=== PATIENT | female | born 1925 | race Caucasian/White ===

== ENCOUNTER 2016-08-17 04:06 | Emergency (ER) | payer MEDICARE ==
[~2016-08-17] VITALS: Ht 157.5 cm; Wt 86.4 kg
[~2016-08-17 04:06] MED LIST: ALBUTEROL0.83 MG/ML IH; ALMACONE 360 M360 ML; AMARYL 2MG T2 MG/TAB PO; CATAPRES 0.1MG0.1 MG PO; CATAPRES0.2 MG PO; CLARITIN 1010 MG/TAB PO; CLEOCIN HCL300 MG PO; COMPAZINE 110 MG/TAB PO; COREG12.5 MG PO; CORTIZONE-10 MAXIM11 TP; COZAAR 50MG50 MG/TAB PO; COZAAR100 MG PO; CYMBALTA 30MG30 MG PO; FERROUS SU325 MG/TAB PO; IMODIUM 2MG CAPS2 MG PO; LASIX 20MG TABL20 MG PO; LEVAQUIN 750MG750 M1 PO; LIDO2%GEL; LIDODERM PATCH TP; LORTAB 7.5/5001 TAB PO; LOTRISONE 0.05%1 CRE TOP; MELATONIN3 M1 PO; MILK OF MA400 MG/52; MIRALAX PA17 GM/Dose PO; MUCINEX 60600 MG/TA1 PO; NEURONTIN600 MG/TAB PO; NORCO 325 MG-101 TAB PO; NORVASC 10MG10 MG PO; NORVASC 5MG5 MG/TAB PO; OCUVITE1 TA1 PO; PAMELOR50 MG PO; PREDNISONE20 MG PO; PROMETHAZINE V473 M2 PO; PROZAC 20MG20 MG PO; STOOL SOFTENER100 M2 PO; TEGRETOL 1100 MG/TAB PO; TENORMIN 2525 MG/TAB PO; TRIXAICIN HP0.075% TP; Z BEC PO; ZOCOR 20MG20 MG PO; [UNRECOGNIZED DRUG - OTHER]; [UNRECOGNIZED DRUG - OTHER] PO; [UNRECOGNIZED DRUG - OTHER] PO; [UNRECOGNIZED DRUG - OTHER] TP
[2016-08-17 04:09] VITALS: TEMP 97.8
[2016-08-17 05:45] VITALS: BP 184/91; PULSE 72
[2016-08-17] MEDS ORDERED: SYSTANE 0.4%-0.1 SOL OP (06:09)
[2016-08-17] MEDS ORDERED: ALMACONE 360 M360 ML PO (06:10)
[2016-08-17] MEDS ORDERED: TYLENOL SU325 MG/SUP RC (06:11)
[2016-08-17] MEDS ORDERED: DULCOLAX S10 MG/SUPP RC (06:11)
[2016-08-17] MEDS ORDERED: TYLENOL 325MG325 MG PO (06:12)
[2016-08-17] MEDS ORDERED: DEBROX OT (06:20)
== END 2016-08-17 06:00 | disposition home or self-care (01) ==
LOC: COL.ER 04:06
DX: S61.411A Laceration without foreign body of right hand, initial encounter (principal); Z23 Encounter for immunization; W27.2XXA Contact with scissors, initial encounter; W01.118A Fall on same level from slipping, tripping and stumbling with subsequent striking against other sharp object, initial encounter; Y92.009 Unspecified place in unspecified non-institutional (private) residence as the place of occurrence of the external cause

== ENCOUNTER → 2017-04-08 | Outpatient (CLI) | payer MEDICARE ==
[~2017-04-08] MED LIST changes: +ALMACONE 360 M360 ML PO; +DEBROX OT; +DULCOLAX S10 MG/SUPP RC; +SYSTANE 0.4%-0.1 SOL OP; +TYLENOL 325MG325 MG PO; +TYLENOL SU325 MG/SUP RC
== END ==
LOC: WCC 13:19
DX: L89.891 Pressure ulcer of other site, stage 1 (principal); L89.892 Pressure ulcer of other site, stage 2
CPT/HCPCS: 13919; 17716; 17717; 27510; A6197; A6212; G0463

== ENCOUNTER 2017-05-28 09:04 | Inpatient (IN) | payer MEDICARE ==
[2017-05-28] VITALS (275 sets, daily range): BP systolic 117–153; BP diastolic 58–76; PULSE 84–89; TEMP 97–98.8; O2SAT 79–100
[~2017-05-28] VITALS: Ht 170.2 cm; Wt 84.1 kg
[2017-05-28] MEDS ORDERED: COLACE 100100 MG/CAP PO (09:34)
[2017-05-28] MEDS ORDERED: PROFE180 MG PO (09:37)
[2017-05-28 10:09] LABS: ARTERIAL BLD GAS TCO2 CT 29.2; ARTERIAL BLOOD GAS BASE EXCESS 1.1 (-2-2); ARTERIAL BLOOD GAS HCO3 27.6 meq/L (22-26); ARTERIAL BLOOD GAS PO2 69.4 mmHg (80-100); ARTERIAL BLOOD GAS pH 7.34 (7.35-7.45); OXYHEMOGLOBIN 91.2 %
[2017-05-28 10:10] LABS: ALLEN TEST YES; ALLENS TEST RESULT PASS; ATS? YES
[2017-05-28 10:11] LABS: MEAN CELL VOLUME 104 fl (80.0-100.0); MEAN CORPUSCULAR HGB CONC 32 g/dl (33.0-37.0); MEAN PLATELET VOLUME 11.1 fl (7.4-10.4); PLATELET COUNT 135 K/mm3 (130-400); RED BLOOD COUNT 2.87 M/mm3 (4.10-5.30)
[2017-05-28 10:13] LABS: HEMATOCRIT 29.8 % (37.0-47.0); HEMOGLOBIN 9.5 g/dl (12.5-16.0); MEAN CORPUSCULAR HEMOGLOBIN 33 pg (27.0-31.0); WHITE BLOOD COUNT 20.1 K/mm3 (4.8-10.8)
[2017-05-28 10:14] LABS: ADD PATHOLOGY DIFF REVIEW NO
[2017-05-28 10:25] LABS: ADJUSTED CALCIUM 8.9 mg/dL (8.4-10.2); ALBUMIN 3.5 gm/dL (3.5-5.0); BILIRUBIN,TOTAL 0.8 mg/dL (0.0-1.0); CALCIUM 8.5 mg/dL (8.4-10.2); CREATININE, serum 2.13 mg/dL (0.52-1.25); POTASSIUM 4.3 mmol/L (3.4-5.0); TOTAL PROTEIN 6.8 gm/dL (6.4-8.2)
[2017-05-28 10:28] LABS: COLLECTION METHOD CLEAN CATCH
[2017-05-28 10:43] LABS: BAND 43 % (0-10); LYMPHOCYTE 8 % (20.0-51.0); NEUTROPHILS 43 % (42.0-75.2); TOTAL CELLS COUNTED 100
[2017-05-28 10:47] LABS: MUCOUS Present /lpf; PH 5 (5-8); SQUAMOUS EPITHELIAL None Seen /hpf; URINE APPEARANCE Cloudy; URINE BACTERIA Many /hpf; URINE BILIRUBIN Negative (NEGATIVE); URINE BLOOD Negative (NEGATIVE); URINE COLOR Amber; URINE GLUCOSE Negative (NEGATIVE); URINE KETONE Negative (NEGATIVE); URINE LEUKOCYTE ESTERASE 2+ (NEGATIVE); URINE PROTEIN(semi-quant) 1+ (NEGATIVE); URINE RBC 0-2 /hpf; URINE UROBILINOGEN Negative (NEGATIVE)
[2017-05-28 10:52] LABS: PLATELET ESTIMATE NORMAL (NORMAL); TOXIC GRANULATION PRESENT
[2017-05-28] MEDS ORDERED: NORCO 325 MG-101 TAB PO (15:34)
[2017-05-28 19:06] LABS: ARTERIAL BLD GAS O2 SATURATION 92.5 % (92-100); ARTERIAL BLOOD GAS BASE EXCESS -0.9 (-2-2); ARTERIAL BLOOD GAS HCO3 25.5 meq/L (22-26); ARTERIAL BLOOD GAS pH 7.32 (7.35-7.45); OXYHEMOGLOBIN 91.9 %
[2017-05-28 19:07] LABS: ALLEN TEST NO; ATS? YES
[2017-05-28 21:04] LABS: ALLEN TEST YES; ALLENS TEST RESULT PASS; ARTERIAL BLD GAS TCO2 CT 28.5; ARTERIAL BLOOD GAS BASE EXCESS 0.3 (-2-2); ARTERIAL BLOOD GAS HCO3 26.9 meq/L (22-26); ARTERIAL BLOOD GAS PO2 94.5 mmHg (80-100); ARTERIAL BLOOD GAS pH 7.32 (7.35-7.45); ATS? YES; OXYHEMOGLOBIN 95.4 %
[2017-05-29] VITALS (753 sets, daily range): BP systolic 147–191; BP diastolic 75–95; PULSE 85–96; TEMP 97.4–98.5; O2SAT 72–100
[2017-05-29 04:40] LABS: ARTERIAL BLD GAS O2 SATURATION 95.7 % (92-100); ARTERIAL BLD GAS TCO2 CT 29.3; ARTERIAL BLOOD GAS BASE EXCESS -0.7 (-2-2); ARTERIAL BLOOD GAS HCO3 27.3 meq/L (22-26); ARTERIAL BLOOD GAS PO2 94.9 mmHg (80-100); ARTERIAL BLOOD GAS pH 7.25 (7.35-7.45); OXYHEMOGLOBIN 95.1 %
[2017-05-29 04:41] LABS: ALLEN TEST YES; ALLENS TEST RESULT PASS; ATS? YES
[2017-05-29 05:56] LABS: BASO % 0.1 % (0.0-2.0); GRAN # 13.4 (1.4-6.5); GRAN % 90.6 % (42.2-75.2); MEAN CELL VOLUME 105 fl (80.0-100.0); MEAN CORPUSCULAR HGB CONC 31 g/dl (33.0-37.0); MEAN PLATELET VOLUME 11.2 fl (7.4-10.4); MONO # 0.2 (0.1-0.6); MONO % 1.6 % (1.7-9.3); PLATELET COUNT 139 K/mm3 (130-400); WHITE BLOOD COUNT 14.8 K/mm3 (4.8-10.8)
[2017-05-29 05:59] LABS: HEMATOCRIT 30.3 % (37.0-47.0); HEMOGLOBIN 9.5 g/dl (12.5-16.0); MEAN CORPUSCULAR HEMOGLOBIN 33 pg (27.0-31.0)
[2017-05-29 06:07] LABS: ADJUSTED CALCIUM 9.4 mg/dL (8.4-10.2); ALBUMIN 3.3 gm/dL (3.5-5.0); BILIRUBIN,TOTAL 0.5 mg/dL (0.0-1.0); CALCIUM 8.8 mg/dL (8.4-10.2); CREATININE, serum 1.54 mg/dL (0.52-1.25); POTASSIUM 4.2 mmol/L (3.4-5.0); TOTAL PROTEIN 6.6 gm/dL (6.4-8.2)
[2017-05-29 07:06] LABS: ARTERIAL BLD GAS O2 SATURATION 96.9 % (92-100); ARTERIAL BLD GAS TCO2 CT 27.7; ARTERIAL BLOOD GAS BASE EXCESS -1.1 (-2-2); ARTERIAL BLOOD GAS PHT 7.29 C (7.35-7.45); ARTERIAL BLOOD GAS PO2 108.6 mmHg (80-100); ARTERIAL BLOOD GAS PO2T 108.6 (80-100); ARTERIAL BLOOD GAS pH 7.29 (7.35-7.45)
[2017-05-29 07:07] LABS: ATS? YES
[2017-05-30] VITALS (9 sets, daily range): BP systolic 155–189; BP diastolic 79–91; PULSE 84–105; TEMP 97.3–98.2
[2017-05-30 04:26] LABS: ARTERIAL BLD GAS TCO2 CT 26.1; ARTERIAL BLOOD GAS HCO3 24.7 meq/L (22-26); ARTERIAL BLOOD GAS PHT 7.35 C (7.35-7.45); ARTERIAL BLOOD GAS PO2 70.9 mmHg (80-100); ARTERIAL BLOOD GAS PO2T 70.9 (80-100); ARTERIAL BLOOD GAS pH 7.35 (7.35-7.45); OXYHEMOGLOBIN 92.4 %
[2017-05-30 04:27] LABS: ALLEN TEST YES; ALLENS TEST RESULT PASS; ATS? YES
[2017-05-30 06:49] LABS: BASO % 0.2 % (0.0-2.0); GRAN # 14.1 (1.4-6.5); GRAN % 84.9 % (42.2-75.2); LYMPH # 1.3 (1.2-3.4); LYMPH % 7.7 % (20.0-51.0); MEAN CELL VOLUME 101 fl (80.0-100.0); MEAN CORPUSCULAR HGB CONC 32 g/dl (33.0-37.0); MONO # 1.1 (0.1-0.6); MONO % 6.6 % (1.7-9.3); PLATELET COUNT 182 K/mm3 (130-400); RED BLOOD COUNT 3.33 M/mm3 (4.10-5.30); WHITE BLOOD COUNT 16.6 K/mm3 (4.8-10.8)
[2017-05-30 06:50] LABS: HEMATOCRIT 33.5 % (37.0-47.0); HEMOGLOBIN 10.8 g/dl (12.5-16.0); MEAN CORPUSCULAR HEMOGLOBIN 32 pg (27.0-31.0)
[2017-05-30 07:11] LABS: CALCIUM 9.3 mg/dL (8.4-10.2); CREATININE, serum 1.22 mg/dL (0.52-1.25); POTASSIUM 3.5 mmol/L (3.4-5.0)
[2017-05-31 00:32] VITALS: BP 169/74; PULSE 92; TEMP 97.4
[2017-05-31 05:48] VITALS: BP 187/91; PULSE 98; TEMP 98.5
[2017-05-31 06:40] LABS: BASO % 0.1 % (0.0-2.0); GRAN # 12.5 (1.4-6.5); GRAN % 81.8 % (42.2-75.2); LYMPH # 1.6 (1.2-3.4); LYMPH % 10.6 % (20.0-51.0); MEAN CELL VOLUME 101 fl (80.0-100.0); MEAN CORPUSCULAR HGB CONC 32 g/dl (33.0-37.0); MEAN PLATELET VOLUME 11.1 fl (7.4-10.4); MONO % 6.5 % (1.7-9.3); PLATELET COUNT 204 K/mm3 (130-400); RED BLOOD COUNT 3.45 M/mm3 (4.10-5.30); WHITE BLOOD COUNT 15.3 K/mm3 (4.8-10.8)
[2017-05-31 06:41] LABS: HEMATOCRIT 34.7 % (37.0-47.0); HEMOGLOBIN 11.2 g/dl (12.5-16.0); MEAN CORPUSCULAR HEMOGLOBIN 32 pg (27.0-31.0)
[2017-05-31 06:52] LABS: CALCIUM 9.2 mg/dL (8.4-10.2); CREATININE, serum 1.04 mg/dL (0.52-1.25); MAGNESIUM 1.7 mg/dL (1.6-2.3); POTASSIUM 3.3 mmol/L (3.4-5.0)
[2017-05-31 07:52] VITALS: BP 202/84; PULSE 95; TEMP 98.1
[2017-05-31 11:36] VITALS: BP 165/70; PULSE 85; TEMP 97.8
[2017-05-31 16:50] VITALS: BP 175/75; PULSE 89; TEMP 98.4
[2017-05-31 20:04] VITALS: BP 180/73; PULSE 82; TEMP 98.5
[2017-06-01] VITALS (8 sets, daily range): BP systolic 153–177; BP diastolic 62–89; PULSE 73–85; TEMP 96.3–98.2
[2017-06-01 05:11] LABS: ARTERIAL BLD GAS O2 SATURATION 96.6 % (92-100); ARTERIAL BLD GAS TCO2 CT 30.2; ARTERIAL BLOOD GAS BASE EXCESS 3.5 (-2-2); ARTERIAL BLOOD GAS HCO3 28.8 meq/L (22-26); ARTERIAL BLOOD GAS PHT 7.41 C (7.35-7.45); ARTERIAL BLOOD GAS PO2 102.3 mmHg (80-100); ARTERIAL BLOOD GAS PO2T 102.3 (80-100); ARTERIAL BLOOD GAS pH 7.41 (7.35-7.45); OXYHEMOGLOBIN 95.9 %
[2017-06-01 05:12] LABS: ALLEN TEST YES; ALLENS TEST RESULT PASS; ATS? YES
[2017-06-01 06:48] LABS: MEAN CELL VOLUME 102 fl (80.0-100.0); MEAN CORPUSCULAR HGB CONC 32 g/dl (33.0-37.0); MEAN PLATELET VOLUME 10.9 fl (7.4-10.4); PLATELET COUNT 202 K/mm3 (130-400); RED BLOOD COUNT 3.43 M/mm3 (4.10-5.30)
[2017-06-01 06:53] LABS: HEMATOCRIT 34.9 % (37.0-47.0); HEMOGLOBIN 11.1 g/dl (12.5-16.0); MEAN CORPUSCULAR HEMOGLOBIN 32 pg (27.0-31.0)
[2017-06-01 06:54] LABS: ADD PATHOLOGY DIFF REVIEW NO
[2017-06-01 07:00] LABS: CALCIUM 9.1 mg/dL (8.4-10.2); CREATININE, serum 1.05 mg/dL (0.52-1.25); MAGNESIUM 2.4 mg/dL (1.6-2.3); POTASSIUM 3.8 mmol/L (3.4-5.0)
[2017-06-01 10:00] LABS: BAND 10 % (0-10); LYMPHOCYTE 14 % (20.0-51.0); NEUTROPHILS 66 % (42.0-75.2); TOTAL CELLS COUNTED 100
[2017-06-01 10:01] LABS: PLATELET ESTIMATE NORMAL (NORMAL)
[2017-06-02 04:11] VITALS: BP 150/74; PULSE 87; TEMP 97.8
[2017-06-02 07:23] LABS: HEMATOCRIT 37.1 % (37.0-47.0); MEAN CELL VOLUME 103 fl (80.0-100.0); MEAN CORPUSCULAR HEMOGLOBIN 32 pg (27.0-31.0); MEAN CORPUSCULAR HGB CONC 32 g/dl (33.0-37.0); MEAN PLATELET VOLUME 11.1 fl (7.4-10.4); PLATELET COUNT 230 K/mm3 (130-400); RED BLOOD COUNT 3.62 M/mm3 (4.10-5.30); WHITE BLOOD COUNT 15.8 K/mm3 (4.8-10.8)
[2017-06-02 07:52] LABS: CALCIUM 9.5 mg/dL (8.4-10.2); CREATININE, serum 1.06 mg/dL (0.52-1.25); MAGNESIUM 2.3 mg/dL (1.6-2.3); PHOSPHOROUS 3.6 mg/dL (2.5-4.5); POTASSIUM 3.6 mmol/L (3.4-5.0)
[2017-06-02 08:09] LABS: ADD PATHOLOGY DIFF REVIEW NO; HEMOGLOBIN 11.7 g/dl (12.5-16.0)
[2017-06-02 08:44] VITALS: BP 184/77; PULSE 92; TEMP 97.4
[2017-06-02 09:50] LABS: BAND 15 % (0-10); LYMPHOCYTE 19 % (20.0-51.0); NEUTROPHILS 57 % (42.0-75.2); PLATELET ESTIMATE NORMAL (NORMAL); TOTAL CELLS COUNTED 100
[2017-06-02 09:51] LABS: HYPOCHROMIA 1+
[2017-06-02 12:24] VITALS: BP 192/86; PULSE 89; TEMP 98.3
[2017-06-02 16:09] VITALS: BP 174/78; PULSE 95; TEMP 98
[2017-06-02 19:56] VITALS: BP 176/78; PULSE 100; TEMP 97.4
[2017-06-03] VITALS (7 sets, daily range): BP systolic 152–199; BP diastolic 61–85; PULSE 79–102; TEMP 97.6–98.7
[2017-06-03 06:14] LABS: HEMATOCRIT 40.1 % (37.0-47.0); HEMOGLOBIN 12.7 g/dl (12.5-16.0); MEAN CELL VOLUME 102 fl (80.0-100.0); MEAN CORPUSCULAR HEMOGLOBIN 32 pg (27.0-31.0); MEAN CORPUSCULAR HGB CONC 32 g/dl (33.0-37.0); MEAN PLATELET VOLUME 10.6 fl (7.4-10.4); PLATELET COUNT 242 K/mm3 (130-400); RED BLOOD COUNT 3.94 M/mm3 (4.10-5.30); WHITE BLOOD COUNT 18.9 K/mm3 (4.8-10.8)
[2017-06-03 06:19] LABS: ADD PATHOLOGY DIFF REVIEW NO
[2017-06-03 06:32] LABS: CALCIUM 9.6 mg/dL (8.4-10.2); CREATININE, serum 0.84 mg/dL (0.52-1.25); MAGNESIUM 2.1 mg/dL (1.6-2.3); PHOSPHOROUS 3.1 mg/dL (2.5-4.5); POTASSIUM 3.2 mmol/L (3.4-5.0)
[2017-06-03 07:03] LABS: BAND 2 % (0-10); LYMPHOCYTE 23 % (20.0-51.0); METAMYELOCYTE 1 % (0-0); NEUTROPHILS 70 % (42.0-75.2); PLATELET ESTIMATE NORMAL (NORMAL); TOTAL CELLS COUNTED 100
[2017-06-04 03:45] VITALS: BP 153/64; PULSE 85; TEMP 98.2
[2017-06-04 06:37] LABS: HEMATOCRIT 36.6 % (37.0-47.0); HEMOGLOBIN 11.6 g/dl (12.5-16.0); MEAN CELL VOLUME 102 fl (80.0-100.0); MEAN CORPUSCULAR HEMOGLOBIN 32 pg (27.0-31.0); MEAN CORPUSCULAR HGB CONC 32 g/dl (33.0-37.0); MEAN PLATELET VOLUME 11.6 fl (7.4-10.4); PLATELET COUNT 211 K/mm3 (130-400)
[2017-06-04 06:38] LABS: ADD PATHOLOGY DIFF REVIEW NO
[2017-06-04 06:55] LABS: CALCIUM 8.8 mg/dL (8.4-10.2); CREATININE, serum 0.87 mg/dL (0.52-1.25); MAGNESIUM 1.9 mg/dL (1.6-2.3)
[2017-06-04 07:04] LABS: POTASSIUM 2.9 mmol/L (3.4-5.0)
[2017-06-04 07:09] LABS: BAND 3 % (0-10); LYMPHOCYTE 19 % (20.0-51.0); NEUTROPHILS 72 % (42.0-75.2); PLATELET ESTIMATE NORMAL (NORMAL); TOTAL CELLS COUNTED 100
[2017-06-04 07:11] LABS: HYPOCHROMIA 2+
[2017-06-04 07:44] VITALS: BP 181/86; PULSE 87; TEMP 97.6
[2017-06-04 12:15] VITALS: BP 165/71; PULSE 78; TEMP 97.7
[2017-06-04 16:33] VITALS: BP 145/71; PULSE 83; TEMP 98.5
[2017-06-04 21:56] VITALS: BP 160/76; PULSE 77; TEMP 97.6
[2017-06-05] VITALS (7 sets, daily range): BP systolic 137–193; BP diastolic 61–77; PULSE 76–94; TEMP 97.8–99.2
[2017-06-05 06:51] LABS: BASO % 0.1 % (0.0-2.0); EOS % 0.1 % (0-4.0); GRAN # 11.2 (1.4-6.5); GRAN % 69.5 % (42.2-75.2); HEMATOCRIT 33.2 % (37.0-47.0); HEMOGLOBIN 10.7 g/dl (12.5-16.0); LYMPH # 3.4 (1.2-3.4); LYMPH % 21.3 % (20.0-51.0); MEAN CELL VOLUME 101 fl (80.0-100.0); MEAN CORPUSCULAR HEMOGLOBIN 32 pg (27.0-31.0); MEAN CORPUSCULAR HGB CONC 32 g/dl (33.0-37.0); MEAN PLATELET VOLUME 11.7 fl (7.4-10.4); MONO # 1.2 (0.1-0.6); MONO % 7.6 % (1.7-9.3); PLATELET COUNT 187 K/mm3 (130-400); WHITE BLOOD COUNT 16.1 K/mm3 (4.8-10.8)
[2017-06-05 07:06] LABS: CALCIUM 8.5 mg/dL (8.4-10.2); CREATININE, serum 0.92 mg/dL (0.52-1.25); MAGNESIUM 1.8 mg/dL (1.6-2.3); POTASSIUM 3.6 mmol/L (3.4-5.0)
[2017-06-06 04:45] VITALS: BP 142/66; PULSE 81; TEMP 98.9
[2017-06-06 06:38] LABS: MEAN CELL VOLUME 101 fl (80.0-100.0); MEAN CORPUSCULAR HGB CONC 32 g/dl (33.0-37.0); MEAN PLATELET VOLUME 11.9 fl (7.4-10.4); PLATELET COUNT 164 K/mm3 (130-400); RED BLOOD COUNT 3.01 M/mm3 (4.10-5.30); WHITE BLOOD COUNT 18.4 K/mm3 (4.8-10.8)
[2017-06-06 06:48] LABS: CALCIUM 8.3 mg/dL (8.4-10.2); CREATININE, serum 1.04 mg/dL (0.52-1.25); MAGNESIUM 1.7 mg/dL (1.6-2.3)
[2017-06-06 06:53] LABS: HEMATOCRIT 30.5 % (37.0-47.0); HEMOGLOBIN 9.7 g/dl (12.5-16.0); MEAN CORPUSCULAR HEMOGLOBIN 32 pg (27.0-31.0)
[2017-06-06 07:23] VITALS: BP 164/69; PULSE 82; TEMP 98.1
[2017-06-06 09:03] LABS: BAND 37 % (0-10); LYMPHOCYTE 28 % (20.0-51.0); METAMYELOCYTE 1 % (0-0); NEUTROPHILS 34 % (42.0-75.2); PLATELET ESTIMATE NORMAL (NORMAL); TOTAL CELLS COUNTED 100
[2017-06-06 09:04] LABS: ADD PATHOLOGY DIFF REVIEW YES
[2017-06-06] MEDS ORDERED: CIPRO 500MG TA500 MG PO (09:12)
[2017-06-06] MEDS ORDERED: COREG12.5 MG PO (09:13)
[2017-06-06] MEDS ORDERED: NORCO 325 MG-101 TAB PO (09:14)
[2017-06-06] MEDS ORDERED: EFFER-K20 MEQ PO (09:15)
[2017-06-06] MEDS ORDERED: NOVLOG SQ (09:18)
[2017-06-06] MEDS ORDERED: SSD25 GM TP (09:19)
[2017-06-06 09:40] LABS: ARTERIAL BLD GAS TCO2 CT 30.5; ARTERIAL BLOOD GAS HCO3 29.1 meq/L (22-26); ARTERIAL BLOOD GAS PO2 74.1 mmHg (80-100); ARTERIAL BLOOD GAS pH 7.42 (7.35-7.45); OXYHEMOGLOBIN 93.5 %
[2017-06-06 09:41] LABS: ALLEN TEST YES; ALLENS TEST RESULT PASS; ATS? YES
[2017-06-06 11:16] VITALS: BP 164/69; PULSE 82; TEMP 98.1
[2017-06-06] MEDS ORDERED: PREDNISONE20 MG PO (11:17)
== END 2017-06-06 13:47 | DRG 871 ==
LOC: COL.ER 09:04 → ICU 11:35 → MEDICAL 11:35
PROVIDERS: Family Medicine; Internal Medicine; Nurse Practitioner Family; Physician Assistant
PROC: 02HV33Z Insertion of Infusion Device into Superior Vena Cava, Percutaneous Approach (ICD-10-PCS; principal; 2017-06-03)
DX: A41.51 Sepsis due to Escherichia coli [E. coli] (principal); J96.22 Acute and chronic respiratory failure with hypercapnia; J96.21 Acute and chronic respiratory failure with hypoxia; I50.32 Chronic diastolic (congestive) heart failure; Z66 Do not resuscitate; K56.7 Ileus, unspecified; N39.0 Urinary tract infection, site not specified; I13.0 Hypertensive heart and chronic kidney disease with heart failure and stage 1 through stage 4 chronic kidney disease, or unspecified chronic kidney disease; N17.9 Acute kidney failure, unspecified; J98.11 Atelectasis; B96.20 Unspecified Escherichia coli [E. coli] as the cause of diseases classified elsewhere; J44.9 Chronic obstructive pulmonary disease, unspecified; E11.22 Type 2 diabetes mellitus with diabetic chronic kidney disease; N18.9 Chronic kidney disease, unspecified; Z79.4 Long term (current) use of insulin; E87.6 Hypokalemia; D64.9 Anemia, unspecified; E11.42 Type 2 diabetes mellitus with diabetic polyneuropathy
CPT/HCPCS: 99223-AI; 99232-AI; 99233-AI; 99239; A9284; C1751; C1894; J0360; J0456; J0696; J1170; J1630; J1644; J1815; J2060; J2405; J2550; J2920; J3475; J3480; J7030; J7050; J7512; Q9967